=== PATIENT | female | born 1990 | race Two or more races ===

== ENCOUNTER 2019-02-05 15:06 | Emergency (ER) | payer OTHER ==
--- NOTE | 2019-02-05 16:06 | ER Document Report ---
ED Medical Screen (RME) - General Chief Complaint: Abdominal Pain Stated Complaint: ABDOMINAL PAIN Time Seen by Provider: 02/05/19 16:04 Mode of Arrival: Ambulatory Information source: Patient Notes: Patient presents 16 weeks complaining of epigastric pain that started around 11 AM. Patient states pain is been off and on and occasionally will radiate to the lower pelvic area. Patient denies any nausea vomiting diarrhea. Patient denies any urinary symptoms vaginal bleeding or discharge. I have greeted and performed a rapid initial assessment of this patient. A comprehensive ED assessment and evaluation of the patient, analysis of test results and completion of the medical decision making process will be conducted by additional ED providers. TRAVEL OUTSIDE OF THE [place] IN LAST 30 DAYS: No - Related Data Allergies/Adverse Reactions: No Known Allergies Allergy (Unverified 02/05/19 16:05) Physical Exam - Vital signs Vitals: Temp Pulse Resp BP Pulse Ox 98.3 F 77 16 122/70 99 02/05/19 15:15 02/05/19 15:15 02/05/19 15:15 02/05/19 15:15 02/05/19 15:15 - Abdominal Tenderness: Tender - Epigastric, lower pelvic Course - Vital Signs Vital signs: Temp Pulse Resp BP Pulse Ox 98.3 F 77 16 122/70 99 02/05/19 15:15 02/05/19 15:15 02/05/19 15:15 02/05/19 15:15 02/05/19 15:15
[2019-02-05 17:30] LABS: ABSOLUTE EOSINOPHILS # (AUTO) 0.1 10^3/uL (0.0-0.6); ABSOLUTE LYMPHOCYTES (AUTO) 2.4 10^3/uL (0.5-4.7); ABSOLUTE MONOCYTES (AUTO) 0.4 10^3/uL (0.1-1.4); ABSOLUTE NEUT (AUTO) 7.9 10^3/uL (1.7-8.2); APPEARANCE,URINE CLEAR; BASOPHILS % (AUTO) 0.2 % (0-2); BILIRUBIN,URINE NEGATIVE (NEGATIVE); COLOR,URINE YELLOW; EOSINOPHILS % (AUTO) 0.5 % (0-6); GLUCOSE, URINE NEGATIVE (NEGATIVE); HEMATOCRIT 34.1 % (36.0-47.0); HEMOGLOBIN 11.3 g/dL (12.0-15.5); KETONES,URINE 20 mg/dL (NEGATIVE); LEUKOCYTE ESTERASE,URINE NEGATIVE (NEGATIVE); LYMPHOCYTES % (AUTO) 22.3 % (13-45); MEAN CORPUSCULAR HEMOGLOBIN 26.4 pg (27.0-33.4); MEAN CORPUSCULAR HGB CONC 33.1 g/dL (32.0-36.0); MEAN CORPUSCULAR VOLUME 80 fl (80-97); MONOCYTES % (AUTO) 3.9 % (3-13); NITRITE,URINE NEGATIVE (NEGATIVE); PLATELET COUNT 228 10^3/uL (150-450); PROTEIN,URINE NEGATIVE (NEGATIVE); RED BLOOD COUNT 4.26 10^6/uL (3.72-5.28); RED CELL DISTRIBUTION WIDTH 14.3 % (11.5-14.0); SEGMENTED NEUTROPHILS % (AUTO) 73.1 % (42-78); TOTAL CELLS COUNTED % (AUTO) 100 %; URINE SPECIFIC GRAVITY 1.014; UROBILINOGEN,URINE NEGATIVE mg/dL (<2.0); WHITE BLOOD COUNT 10.9 10^3/uL (4.0-10.5)
[2019-02-05 18:01] LABS: ALKALINE PHOSPHATASE 61 U/L (38-126); ANION GAP 10 (5-19); ASPARTATE AMINO TRANSFERASE 19 U/L (14-36); BILIRUBIN,TOTAL 0.3 mg/dL (0.2-1.3); BLOOD UREA NITROGEN 14 mg/dL (7-20); CALCIUM 9.7 mg/dL (8.4-10.2); CARBON DIOXIDE 25 mmol/L (22-30); CHLORIDE 99 mmol/L (98-107); GLUCOSE 79 mg/dL (75-110); POTASSIUM 4.1 mmol/L (3.6-5.0); TOTAL PROTEIN 7.2 g/dL (6.3-8.2)
--- NOTE | 2019-02-05 18:35 | RADIOLOGY REPORT (SQ) ---
EXAM DESCRIPTION: U/S OB LIMITED COMPLETED DATE/TIME: 02/05/2019 5:52 pm REASON FOR STUDY: pelvic abd pain, 16 wk preg COMPARISON: None. TECHNIQUE: Limited transabdominal grayscale ultrasound for evaluation of specific requested obstetri zachery parameters. LIMITATIONS: None. FINDINGS: CERVICAL LENGTH: 2.9 cm Closed. LV P: 4.6 cm. FHR: 155 beats per minute. PRESENTATION: Cephalic. PLACENTA: Anterior, grade 1. ANATOMY: Not assessed OTHER: Gestation of 16 weeks 3 days. IMPRESSION: LIMITED OBSTETRICAL ULTRASOUND WITH MEASURED PARAMETERS DELINEATED ABOVE. Trimester of : Second trimester - 13 weeks 1 day to 27 weeks 6 days. TECHNICAL DOCUMENTATION: JOB ID: [id number] [employer] All Rights Reserved Reading location - IP/workstation name: [email or web address]
--- NOTE | 2019-02-05 18:38 | RADIOLOGY REPORT (SQ) ---
EXAM DESCRIPTION: U/S ABDOMEN LIMITED W/O DOP COMPLETED DATE/TIME: 02/05/2019 5:52 pm REASON FOR STUDY: upper abd pain, epig area, eval GB COMPARISON: None. TECHNIQUE: Dynamic and static grayscale images acquired of the abdomen and recorded on PACS. Skipo angelito selected color Doppler and spectral images recorded. LIMITATIONS: None. FINDINGS: PANCREAS: No masses. Visualized pancreatic duct normal caliber. LIVER: No masses. Echotexture normal. LIVER VASCULATURE: Normal directional flow of the main portal vein and hepatic veins. GALLBLADDER: No stones. Small amount of sludge. ULTRASOUND-DETECTED SWEENEY'S SIGN: Negative. INTRAHEPATIC DUCTS AND COMMON DUCT: CBD and intrahepatic ducts normal caliber. No filling defects. INFERIOR VENA CAVA: Not imaged. AORTA: No aneurysm. RIGHT KIDNEY: Normal size, 10.1 cm. Normal echogenicity. No solid or suspicious masses. No hydroneph rosis. No calcifications. PERITONEAL AND RIGHT PLEURAL SPACE: No ascites or effusions. OTHER: No other significant findings. IMPRESSION: Essentially normal study. There is minimal amount of sludge in the gallbladder. TECHNICAL DOCUMENTATION: JOB ID: [id number]- All Rights Reserved Reading location - IP/workstation name: [email or web address]
--- NOTE | 2019-02-05 21:32 | ER Document Report ---
ED GI/ - General Chief Complaint: Abdominal Pain Stated Complaint: ABDOMINAL PAIN Time Seen by Provider: 02/05/19 16:04 Primary Care Provider: REBA JONES MD [Primary Care Provider] - Follow up as needed Mode of Arrival: Ambulatory Notes: Patient is a 28-year-old female, who is approximately 16 weeks , that comes emergency department chief complaint of epigastric pain that started about 11 AM. She states that this is when the pain got bad but she has had "bad heartburn" for the past 2 days. She states occasionally she will to have pain down in the lower/pelvic area. Denies specific flank pain. She denies nausea vomiting, diarrhea, dysuria, vaginal discharge or bleeding. TRAVEL OUTSIDE OF THE [place] IN LAST 30 DAYS: No - Related Data Allergies/Adverse Reactions: No Known Allergies Allergy (Unverified 02/05/19 16:05) Past Medical History - General Information source: Patient - Social History Smoking Status: Never Smoker Lives with: Family Family History: Reviewed & Not Pertinent Patient has suicidal ideation: No Patient has homicidal ideation: No - Immunizations Immunizations up to date: Yes Hx Diphtheria, Pertussis, Tetanus Vaccination: Yes Review of Systems - Review of Systems Constitutional: No symptoms reported EENT: No symptoms reported Cardiovascular: No symptoms reported Respiratory: No symptoms reported Gastrointestinal: See HPI Genitourinary: No symptoms reported Female Genitourinary: See HPI Musculoskeletal: No symptoms reported Skin: No symptoms reported Hematologic/Lymphatic: No symptoms reported Neurological/Psychological: No symptoms reported Physical Exam - Vital signs Vitals: Temp Pulse Resp BP Pulse Ox 98.3 F 77 16 122/70 99 02/05/19 15:15 02/05/19 15:15 02/05/19 15:15 02/05/19 15:15 02/05/19 15:15 - Notes Notes: GENERAL: Alert, interacts well. No acute distress. HEAD: Normocephalic, atraumatic. EYES: Pupils equal, round, and reactive to light. Extraocular movements intact. ENT: Oral mucosa moist, tongue midline. Oropharynx unremarkable. NECK: Full range of motion. Supple. Trachea midline. LUNGS: Clear to auscultation bilaterally, no wheezes, rales, or rhonchi. No respiratory distress. HEART: Regular rate and rhythm. No murmur ABDOMEN: There is mild epigastric tenderness and tenderness in the left upper quadrant, right upper quadrant completely benign. There is also minimal tenderness noted in both lower abdomen areas. Non-distended. Bowel sounds present in all 4 quadrants. GENITOURINARY: Deferred EXTREMITIES: Moves all 4 extremities spontaneously. No edema, normal radial and dorsalis pedis pulses bilaterally. No cyanosis. BACK: no cervical, thoracic, lumbar midline tenderness. No saddle anesthesia, normal distal neurovascular exam. Moves all extremities in full range of motion. NEUROLOGICAL: Alert and oriented x3. Normal speech. Cranial nerves II through XII grossly intact. PSYCH: Normal affect, normal mood. SKIN: Warm, dry, normal turgor. No rashes or lesions noted. Course - Re-evaluation Re-evalutation: Patient is mild tenderness in the left upper quadrant mainly, minimal in the lower abdomen, none in the right upper quadrant. She is not vomiting. No flank pain. CBC, chemistry, lipase, urinalysis unremarkable. Ultrasound showing min imal sludge in the gallbladder, unremarkable otherwise. Pelvic ultrasound showing intrauterine in second trimester without any complications. I discussed all findings with patient. She is very relieved about this, provided with a copy of her report, we discussed options. Patient reports she is more bloated than usual beyond what she would expect and she has had problems with stools in the past, she will be provided with a stool softener and ranitidine as needed for heartburn. I discussed follow-up and return precautions. Patient states understanding and agreement. Stable time of discharge. - Vital Signs Vital signs: Temp Pulse Resp BP Pulse Ox 98.1 F 92 16 117/67 100 02/05/19 21:50 02/05/19 21:50 02/05/19 21:50 02/05/19 21:50 02/05/19 21:50 - Laboratory Result Diagrams: 02/05/19 17:05 02/05/19 17:05 Laboratory results interpreted by me: 02/05/19 02/05/19 02/05/19 17:05 17:05 17:05 WBC 10.9 H Hgb 11.3 L Hct 34.1 L MCH 26.4 L RDW 14.3 H Sodium 133.5 L Creatinine 0.49 L Urine Ketones 20 H Discharge - Discharge Clinical Impression: Abdominal pain Qualifiers: Abdominal location: generalized Qualified Code(s): R10.84 - Generalized abdominal pain Condition: Stable Disposition: HOME, SELF-CARE Additional Instructions: Your ultrasound of the shows a living at 16 weeks 3 days without complications. Your abdominal ultrasound shows a small amount of sludge in gallbladder but does not show any concerning findings otherwise. Your general work-up does not show any concerning findings. Because of your symptoms I do recommend the ranitidine for the heartburn and pain in the Colace stool softener. You can take these for the next several days and then stop. You can take Tylenol for pain. Reduce spicy food, eat plenty of fiber. Follow-up with primary care for additional management. Come back if you worsen including severe worsening pain, vomiting, fever/chills, or any other concerning symptoms. Prescriptions: Docusate Sodium [Colace 100 mg Capsule] 100 mg PO ASDIR PRN #14 capsule PRN Reason: Ranitidine HCl 150 mg PO BID PRN #14 tablet PRN Reason: Referrals: REBA JONES MD [Primary Care Provider] - Follow up as needed
[2019-02-05 21:51] VITALS: BP 117/67
== END 2019-02-05 21:54 | disposition home or self-care (01) ==
LOC: ER 15:06
DX: O26.892 Other specified pregnancy related conditions, second trimester (principal); R10.84 Generalized abdominal pain; R10.13 Epigastric pain; R10.2 Pelvic and perineal pain; Z3A.16 16 weeks gestation of pregnancy
CPT/HCPCS: 36415; 76705; 76815; 80053; 81001; 83690; 85025; 99284